=== PATIENT | male | born 1985 | race Caucasian/White ===

== ENCOUNTER 2020-04-12 18:19 | Emergency (ER) | payer SELFPAY ==
[~2020-04-12] VITALS: Ht 177.8 cm; Wt 83.6 kg
--- NOTE | 2020-04-12 19:58 | NUR ---
MIA SAPP [phone] FOR RIDE HOME AND INFO
[2020-04-12] MEDS ORDERED: propofol 1000mg/100ml bottle 100 ML IV PRN (20:03)
[2020-04-12] MEDS ORDERED: ketamine 50 mg/ml 10ml vial IV ONE (20:05)
[2020-04-12] MEDS ORDERED: propofol 10mg/ml 20ml vial IV ONE (20:30)
[2020-04-12] MEDS ORDERED: propofol 1000mg/100ml bottle 100 ML IV ONE (21:07)
--- NOTE | 2020-04-12 21:40 | NUR ---
SECOND BOTTLE OF PROPOFOL NEEDED PT WAS WAKING UP DURING PROCEDURE
--- NOTE | 2020-04-12 22:42 | NUR ---
pt called mom for a ride home
--- NOTE | 2020-04-12 22:49 | NUR ---
talked to pt mom and let her know that pt needs to be observed for 24 hr by a responsible adult. mother is a retired rn he will be staying with mother until he recovers.
--- NOTE | 2020-04-12 22:52 | NUR ---
pt was given 500mh of propofol and 100mg of ketamine during moderate sedation
[2020-04-12 23:31] VITALS: BP 154/107
== END 2020-04-12 23:35 | disposition home or self-care (01) ==
LOC: ER 18:19
DX: S42.252A Displaced fracture of greater tuberosity of left humerus, initial encounter for closed fracture (principal); S43.005A Unspecified dislocation of left shoulder joint, initial encounter; K21.9 Gastro-esophageal reflux disease without esophagitis; Z56.0 Unemployment, unspecified; W51.XXXA Accidental striking against or bumped into by another person, initial encounter; Y93.89 Activity, other specified; Y92.89 Other specified places as the place of occurrence of the external cause; Y99.8 Other external cause status
CPT/HCPCS: 23650; 73020; 73030; 99152; 99153; 99285; J2704; 24505

== ENCOUNTER 2021-07-08 16:56 | Inpatient (IN) | payer OTHER ==
[~2021-07-08] VITALS: Ht 177.8 cm; Wt 81.6 kg
[2021-07-08 17:31] LABS: BASOPHILS % (AUTO) 0.2 % (0-1); EOSINOPHILS # (AUTO) 0.1 X10'3 (0-0.9); EOSINOPHILS % (AUTO) 0.8 % (0-6); HEMATOCRIT 38.1 % (42.0-52.0); HEMOGLOBIN 13.3 g/dl (14.0-17.9); LYMPHOCYTES # (AUTO) 0.7 X10'3 (1.1-4.8); LYMPHOCYTES % (AUTO) 9.4 % (21-51); MEAN CORPUSCULAR HGB CONC 34.8 g/dL (33.0-36.5); MEAN CORPUSCULAR VOLUME 100.6 FL (78-98); MEAN PLATELET VOLUME 9.4 FL (7.4-10.4); MONOCYTES # (AUTO) 1.1 X10'3 (0-0.9); MONOCYTES % (AUTO) 13.9 % (2-12); NEUTROPHILS # (AUTO) 5.7 X10'3 (1.8-7.7); NEUTROPHILS % (AUTO) 75.7 % (42-75); PLATELET COUNT 138 X10'3 (140-440); RED BLOOD COUNT 3.79 X10'6 (4.70-6.10); RED CELL DISTRIBUTION WIDTH 16.4 % (11.5-14.5); WHITE BLOOD COUNT 7.6 X10'3 (4.5-11.0)
[2021-07-08 17:46] LABS: ALANINE AMINOTRANSFERASE 83 U/L (12-78); ALBUMIN 3.1 G/DL (3.4-5.0); ALKALINE PHOSPHATASE 153 IU/L (46-116); ANION GAP 10 (8-16); BILIRUBIN,TOTAL 16.5 MG/DL (0.1-1.0); BLOOD UREA NITROGEN 3 MG/DL (7-18); BUN/CREATININE RATIO 5.2 (5.4-32.0); CALCIUM 7.8 MG/DL (8.5-10.1); CHLORIDE 98 MMOL/L (99-107); CREATININE 0.58 MG/DL (0.60-1.10); LIPASE 289 U/L (73-393); SODIUM 137 MMOL/L (135-145); TOTAL CARBON DIOXIDE 28.7 MMOL/L (24-32); eGFR > 90 ML/MIN
[2021-07-08 18:08] LABS: POTASSIUM 3.1 MMOL/L (3.5-5.1)
[2021-07-08 18:09] LABS: CLARITY,URINE CLOUDY (Clear); COLOR,URINE AMBER (Yellow); GLUCOSE, URINE 100 mg/dl (Neg); KETONES,URINE TRACE mg/dl (Neg); LEUKOCYTE ESTERASE ,URINE NEGATIVE (Neg); NITRITES, URINE NEGATIVE (Neg); OCCULT BLOOD,URINE NEGATIVE (Neg); PH,URINE 5.5 (4.8-8.0); PROTEIN,URINE 30 mg/dl (Neg)
[2021-07-08 18:13] LABS: UA COLLECTION TYPE CLN CATCH MIDSTREAM
[2021-07-08 18:18] LABS: BACTERIA,URINE 1+ /HPF (Neg); RBC,URINE 0-2 /HPF (0-2); SQUAMOUS EPITHELIAL CELL,UR FEW /LPF (FEW); WBC,URINE 0-4 /HPF (0-4)
[2021-07-08 18:19] LABS: TRANSITIONAL EPI CELLS,URINE FEW /HPF
[2021-07-08 18:22] LABS: ALBUMIN/GLOBULIN RATIO 0.8 (1.1-1.5); GLUCOSE 120 MG/DL (70-104); TOTAL PROTEIN 6.9 G/DL (6.4-8.2)
--- NOTE | 2021-07-08 18:57 | NUR ---
PT ABD DISTENDED, PT C/O OF ABD PAIN 08/31. NO BM FOR 4 DAYS. PT STATES HE HAD A SEIZURE IN JANUARY 2021 WHEN HE ATTEMPTED TO QUIT DRINKING. PT HERE FROM [place] FOR REHAB.
[2021-07-08 19:03] LABS: ASPARTATE AMINO TRANSFERASE 230 U/L (10-37)
[2021-07-08] MEDS ORDERED: iohexol 300mg/ml 100ml inj. ONE (19:19)
[2021-07-08 19:25] LABS: PARTIAL THROMBOPLASTIN TIME 36 SECONDS (22-32)
--- NOTE | 2021-07-08 19:34 | NUR ---
PT MOTHER CALLED AND REPORTED PT WAS VOMITING BLOOD THIS AM. STATES HE HAS HAD MENTAL CHANGES AFTER SEIZURE IN JANUARY. REPORTS FORGETFULNESS
[2021-07-08] MEDS ORDERED: magnesium 2GM in 50ml NS 50 ML IV PRN (21:00)
[2021-07-08] MEDS ORDERED: potassium Cl 20 mEq SR tablet PO PRN (21:00)
[2021-07-08] MEDS ORDERED: bisacodyl 10mg suppository rectal RC PRN (21:00)
[2021-07-08] MEDS ORDERED: diphenhydrAMINE 50 mg/ml inj IV PRN (21:00)
[2021-07-08] MEDS ORDERED: mag hydrox/Alum hydrox/simeth 30ml oral suspension PO PRN (21:00)
[2021-07-08] MEDS ORDERED: magnesium Cl slow-release 64mg tablet PO PRN (21:00)
[2021-07-08] MEDS ORDERED: acetaminophen 325mg tablet PO PRN ×2 (21:00)
[2021-07-08] MEDS ORDERED: magnesium 4gm in 100ml NS 100 ML IV PRN (21:00)
[2021-07-08] MEDS ORDERED: potassium Cl 40MEQ/1/2NS 520ml 520 ML IV PRN ×2 (21:00)
[2021-07-08] MEDS ORDERED: acetaminophen 650mg rectal suppository RC PRN (21:00)
[2021-07-08] MEDS ORDERED: HYDROcodone/acetaminophen 5mg/325mg tablet PO PRN (21:00)
[2021-07-08] MEDS ORDERED: morphine 2 MG/ML inj. syringe IV PRN (21:00)
[2021-07-08] MEDS ORDERED: LORazepam 2 mg/ml vial IV PRN (21:20)
[2021-07-08] MEDS ORDERED: dextrose 50%-water 50ml dispensing syringe IV PRN (21:20)
[2021-07-08] MEDS ORDERED: cyclobenzaprine 10mg tablet PO PRN (21:20)
[2021-07-08] MEDS ORDERED: loperamide 2mg capsule PO PRN (21:20)
[2021-07-08] MEDS ORDERED: haloperidol lactate 5mg/ml inj IM PRN (21:20)
[2021-07-08 21:33] LABS: HEMOGLOBIN A1C 4.9 % (4.5-6.2)
[2021-07-08] MEDS ORDERED: thiamine inj. 100 MG in normal saline 100ml IV soln 99 ML IV ONE (21:40)
[2021-07-08 21:49] LABS: C-REACTIVE PROTEIN 4.67 MG/DL (0.0-0.5); CREATINE KINASE 358 U/L (39-308); ETHANOL 0.155 GM/DL (0.0-0.010)
[2021-07-08 21:51] LABS: LACTATE DEHYDROGENASE 385 U/L (85-227); PHOSPHORUS 3.2 MG/DL (2.3-4.5)
[2021-07-08 21:54] LABS: URINE AMPHETAMINE SCREEN NEGATIVE (Neg); URINE BARBITUATE SCREEN NEGATIVE (Neg); URINE BENZODIAZEPINES SCREEN NEGATIVE (Neg); URINE CANNABINOID SCREEN POSITIVE (Neg); URINE COCAINE SCREEN NEGATIVE (Neg); URINE METHADONE SCREEN NEGATIVE (Neg); URINE OPIATE SCREEN NEGATIVE (Neg); URINE PHENCYCLIDINE SCREEN NEGATIVE (Neg)
[2021-07-08] MEDS ORDERED: predniSONE 20 mg tablet PO ONE (22:00)
[2021-07-08] MEDS ORDERED: NO HOME MEDS (22:31)
[2021-07-08] MEDS: dextrose 5%-1/2 normal saline 1,000 ML IV SCH (23:09)
[2021-07-08 23:13] LABS: OCCULT BLOOD STOOL NEGATIVE (Neg)
[2021-07-08] MEDS: LORazepam 2 mg/ml vial IV PRN (23:26)
--- NOTE | 2021-07-09 02:00 | NUR ---
PT RESTING CALMLY. RR EVEN, NON-LABORED.
[2021-07-09 02:42] LABS: BASOPHILS % (AUTO) 0.4 % (0-1); EOSINOPHILS % (AUTO) 0.8 % (0-6); HEMATOCRIT 33.9 % (42.0-52.0); LYMPHOCYTES # (AUTO) 0.4 X10'3 (1.1-4.8); LYMPHOCYTES % (AUTO) 7.3 % (21-51); MEAN CORPUSCULAR HGB CONC 35.5 g/dL (33.0-36.5); MEAN CORPUSCULAR VOLUME 98.6 FL (78-98); MEAN PLATELET VOLUME 9.5 FL (7.4-10.4); MONOCYTES # (AUTO) 0.7 X10'3 (0-0.9); MONOCYTES % (AUTO) 13.8 % (2-12); NEUTROPHILS # (AUTO) 4.1 X10'3 (1.8-7.7); NEUTROPHILS % (AUTO) 77.7 % (42-75); PLATELET COUNT 107 X10'3 (140-440); RED BLOOD COUNT 3.43 X10'6 (4.70-6.10); RED CELL DISTRIBUTION WIDTH 16.8 % (11.5-14.5); WHITE BLOOD COUNT 5.3 X10'3 (4.5-11.0)
[2021-07-09 02:52] LABS: SODIUM 135 MMOL/L (135-145)
[2021-07-09 02:53] LABS: ALANINE AMINOTRANSFERASE 58 U/L (12-78); ALBUMIN 2.6 G/DL (3.4-5.0); ALKALINE PHOSPHATASE 138 IU/L (46-116); ANION GAP 11 (8-16); BILIRUBIN,TOTAL 15.2 MG/DL (0.1-1.0); BLOOD UREA NITROGEN 3 MG/DL (7-18); BUN/CREATININE RATIO 6.8 (5.4-32.0); CALCIUM 7.3 MG/DL (8.5-10.1); CHLORIDE 98 MMOL/L (99-107); CREATININE 0.44 MG/DL (0.60-1.10); HDL CHOLESTEROL 10 MG/DL (35-60); LDL CHOLESTEROL 90 MG/DL (50-100); MAGNESIUM 1.6 MG/DL (1.5-2.4); TOTAL CARBON DIOXIDE 26.1 MMOL/L (24-32); eGFR > 90 ML/MIN
[2021-07-09 03:03] LABS: ASPARTATE AMINO TRANSFERASE 191 U/L (10-37); GLUCOSE 121 MG/DL (70-104); TOTAL PROTEIN 6.2 G/DL (6.4-8.2); TRIGLYCERIDES 232 MG/DL (20-135)
[2021-07-09 03:06] LABS: ALBUMIN/GLOBULIN RATIO 0.7 (1.1-1.5); POTASSIUM 2.8 MMOL/L (3.5-5.1)
[2021-07-09] MEDS: potassium Cl 20 mEq SR tablet PO PRN ×3 (03:21→14:06)
[2021-07-09 03:29] LABS: CHOL/HDL RATIO 12.2 (0.00-4.99); CHOLESTEROL 122 MG/DL (0-200)
--- NOTE | 2021-07-09 05:10 | NUR ---
PT ASSISTED UP TO BEDSIDE URINAL. HE REPORTS FEELING STEADY ON HIS FEET, DENIES ANY FEELING OF ANXIETY OR SHAKING. WILL CONTINUE TO MONITOR. PT. ASSISTED BACK TO BED.
[2021-07-09] MEDS: LORazepam 2 mg/ml vial IV PRN ×2 (07:34→12:16)
[2021-07-09] MEDS: pantoprazole 40mg Tablet.DR PO SCH (07:34)
[2021-07-09] MEDS: docusate sod 100mg capsule PO SCH ×2 (08:00→20:00)
[2021-07-09] MEDS: K and/or MAG REPLACEMENT MC SCH ×2 (08:00→20:00)
[2021-07-09] MEDS ORDERED: folic acid inj. 2 MG, thiamine inj. 100 MG, MVI, adult No.4 with vit. K 10 ML in dextro... IV SCH ×4 (08:00)
[2021-07-09] MEDS ORDERED: thiamine inj. 100 MG in normal saline 100ml IV soln 99 ML IV SCH (08:00)
[2021-07-09 08:08] VITALS: BP 129/91
[2021-07-09 11:00] VITALS: BP 135/88
[2021-07-09] MEDS: nicotine 21mg patch - 24 hr TD SCH (12:11)
[2021-07-09] MEDS: dextrose 5%-1/2 normal saline 1,000 ML IV SCH ×2 (12:11→17:44)
[2021-07-09] MEDS: magnesium hydroxide 30ml (MOM) UD suspension PO PRN (12:16)
--- NOTE | 2021-07-09 13:59 | NUR ---
PAGER ID: [phone] MESSAGE: Emery Alicea 345A Pt. c/o untreated genital warts. 3 Papules on anterior penis. Kiesha [id number]
[2021-07-09] MEDS: folic acid 1mg/0.2ml inj IV SCH (14:06)
--- NOTE | 2021-07-09 14:29 | NUR ---
Malnutrition Consult: Pt admitted w/ abdominal pain and jaundice w/ a hx of alcohol abuse. Pt unsure of wt loss, though current wt is consistent w/ wt from 3 months ago. Pt has had decreased appetite for the last couple of weeks d/t abd pain, was able to eat about 50% of dinner last night on regular diet. No edema present, no signs of muscle or fat wasting noted. At this time Pt does not meet minimum 2 criteria for malnutrition. Will continue to monitor. Addendum: 07/09/21 at [address] Amended: Links added.
--- NOTE | 2021-07-09 14:33 | NUR ---
Hospitalist returned phone call. States we wont treat pt's presumed STD in hospital r/t meds are not available. Recommends pt. f/u with his PCP follow up.
--- NOTE | 2021-07-09 17:16 | NUR ---
PAGER ID: [phone] MESSAGE: Emery Alicea 345A passive regarding healthcare. Gave permission for mother to know healthcare. She is asking for you to discuss CT and US results with her. [phone] mom ANAID SAPP. Kiesha [phone]
[2021-07-09] MEDS: morphine 2 MG/ML inj. syringe IV PRN (17:50)
--- NOTE | 2021-07-09 18:49 | NUR ---
Gave report to Lita SMITH.
--- NOTE | 2021-07-09 19:14 | NUR ---
Patient in room [facility]. I have received report from Kiesha SMITH and had the opportunity to ask questions and assume patient care.
[2021-07-09 20:00] VITALS: BP 153/90
[2021-07-09] MEDS: ondansetron 4mg rapidly disintigrating tab PO PRN (22:53)
[2021-07-09 23:58] VITALS: BP 151/90
[2021-07-10] MEDS: dextrose 5%-1/2 normal saline 1,000 ML IV SCH ×2 (02:52→12:44)
--- NOTE | 2021-07-10 06:50 | NUR ---
Problems reprioritized. Patient report given, questions answered & plan of care reviewed with Izabella SMITH.
[2021-07-10 07:00] VITALS: BP 116/77
[2021-07-10 07:07] LABS: BASOPHILS % (AUTO) 0.7 % (0-1); EOSINOPHILS # (AUTO) 0.1 X10'3 (0-0.9); EOSINOPHILS % (AUTO) 1.3 % (0-6); HEMATOCRIT 35.7 % (42.0-52.0); HEMOGLOBIN 12.4 g/dl (14.0-17.9); LYMPHOCYTES # (AUTO) 0.5 X10'3 (1.1-4.8); MEAN CORPUSCULAR HEMOGLOBIN 35.4 PG (27.0-31.0); MEAN CORPUSCULAR HGB CONC 34.7 g/dL (33.0-36.5); MEAN CORPUSCULAR VOLUME 101.9 FL (78-98); MEAN PLATELET VOLUME 10.3 FL (7.4-10.4); MONOCYTES % (AUTO) 15.4 % (2-12); NEUTROPHILS % (AUTO) 75.6 % (42-75); PLATELET COUNT 118 X10'3 (140-440); RED BLOOD COUNT 3.51 X10'6 (4.70-6.10); RED CELL DISTRIBUTION WIDTH 16.6 % (11.5-14.5); WHITE BLOOD COUNT 6.6 X10'3 (4.5-11.0)
--- NOTE | 2021-07-10 07:12 | NUR ---
Patient in room [facility]. I have received report from Clarissa SMITH and had the opportunity to ask questions and assume patient care.
[2021-07-10 07:19] LABS: ALANINE AMINOTRANSFERASE 63 U/L (12-78); ALBUMIN 2.6 G/DL (3.4-5.0); ALKALINE PHOSPHATASE 142 IU/L (46-116); ANION GAP 9 (8-16); BILIRUBIN,TOTAL 17.3 MG/DL (0.1-1.0); BLOOD UREA NITROGEN 3 MG/DL (7-18); CALCIUM 7.5 MG/DL (8.5-10.1); CHLORIDE 99 MMOL/L (99-107); MAGNESIUM 1.9 MG/DL (1.5-2.4); SODIUM 133 MMOL/L (135-145); TOTAL CARBON DIOXIDE 24.9 MMOL/L (24-32)
[2021-07-10 07:45] LABS: ALBUMIN/GLOBULIN RATIO 0.7 (1.1-1.5); TOTAL PROTEIN 6.1 G/DL (6.4-8.2)
[2021-07-10 07:46] LABS: ASPARTATE AMINO TRANSFERASE 158 U/L (10-37); CREATININE 0.43 MG/DL (0.60-1.10); GLUCOSE 102 MG/DL (70-104); POTASSIUM 3.6 MMOL/L (3.5-5.1); eGFR > 90 ML/MIN
[2021-07-10] MEDS: docusate sod 100mg capsule PO SCH ×2 (07:59→19:53)
[2021-07-10] MEDS: multivitamins, therapeutics tablet PO SCH (07:59)
[2021-07-10] MEDS: pantoprazole 40mg Tablet.DR PO SCH (07:59)
[2021-07-10] MEDS: ondansetron/PF 4mg/2ml inj IV PRN ×2 (08:00→16:19)
[2021-07-10] MEDS: K and/or MAG REPLACEMENT MC SCH ×2 (08:00→20:00)
[2021-07-10] MEDS: nicotine 21mg patch - 24 hr TD SCH (08:00)
[2021-07-10] MEDS: folic acid 1mg/0.2ml inj IV SCH (08:01)
[2021-07-10 10:00] LABS: ANISOCYTOSIS 1+; LARGE PLATELETS FEW; PLATELET ESTIMATE DECREASED
[2021-07-10 10:05] LABS: TOTAL CELLS COUNTED 100
[2021-07-10] MEDS: LORazepam 2 mg/ml vial IV PRN ×2 (10:46→19:53)
[2021-07-10] MEDS: thiamine inj. 100 MG in normal saline 100ml IV soln 100 ML IV SCH (10:46)
[2021-07-10 11:01] LABS: AFP,SERUM, TUMOR MARKER 2.8 ng/mL (0.0-8.3)
[2021-07-10 12:00] VITALS: BP 127/81
[2021-07-10] MEDS: morphine 2 MG/ML inj. syringe IV PRN (16:20)
--- NOTE | 2021-07-10 18:56 | NUR ---
Problems reprioritized. Patient report given, questions answered & plan of care reviewed with Sharif SMITH.
--- NOTE | 2021-07-10 19:04 | NUR ---
Patient in room [facility]. I have received report from Izabella SMITH and had the opportunity to ask questions and assume patient care.
[2021-07-10 19:19] VITALS: BP 127/71
[2021-07-10 23:45] VITALS: BP 114/69
[2021-07-11] MEDS: dextrose 5%-1/2 normal saline 1,000 ML IV SCH ×3 (01:14→17:37)
[2021-07-11] MEDS: morphine 2 MG/ML inj. syringe IV PRN ×2 (01:15→16:09)
[2021-07-11] MEDS: ondansetron/PF 4mg/2ml inj IV PRN ×3 (01:19→13:50)
[2021-07-11] MEDS: LORazepam 2 mg/ml vial IV PRN ×5 (03:02→23:20)
--- NOTE | 2021-07-11 07:16 | NUR ---
Problems reprioritized. Patient report given, questions answered & plan of care reviewed with Renetta SMITH.
[2021-07-11] MEDS: multivitamins, therapeutics tablet PO SCH (07:23)
[2021-07-11] MEDS: docusate sod 100mg capsule PO SCH ×2 (07:23→19:39)
[2021-07-11] MEDS: pantoprazole 40mg Tablet.DR PO SCH (07:23)
[2021-07-11] MEDS: folic acid 1mg/0.2ml inj IV SCH (07:24)
[2021-07-11] MEDS: thiamine inj. 100 MG in normal saline 100ml IV soln 100 ML IV SCH (07:25)
[2021-07-11 07:57] LABS: BASOPHILS # (AUTO) 0.1 X10'3 (0-0.2); BASOPHILS % (AUTO) 0.9 % (0-1); EOSINOPHILS # (AUTO) 0.1 X10'3 (0-0.9); EOSINOPHILS % (AUTO) 1.4 % (0-6); HEMOGLOBIN 12.6 g/dl (14.0-17.9); LYMPHOCYTES # (AUTO) 0.7 X10'3 (1.1-4.8); MEAN CORPUSCULAR HEMOGLOBIN 35.4 PG (27.0-31.0); MEAN CORPUSCULAR HGB CONC 35.1 g/dL (33.0-36.5); MEAN CORPUSCULAR VOLUME 100.9 FL (78-98); MEAN PLATELET VOLUME 10.1 FL (7.4-10.4); MONOCYTES # (AUTO) 1.1 X10'3 (0-0.9); MONOCYTES % (AUTO) 15.9 % (2-12); NEUTROPHILS # (AUTO) 4.9 X10'3 (1.8-7.7); NEUTROPHILS % (AUTO) 71.8 % (42-75); PLATELET COUNT 121 X10'3 (140-440); RED BLOOD COUNT 3.56 X10'6 (4.70-6.10); RED CELL DISTRIBUTION WIDTH 17.2 % (11.5-14.5); WHITE BLOOD COUNT 6.8 X10'3 (4.5-11.0)
[2021-07-11 08:00] VITALS: BP 114/74
[2021-07-11] MEDS: K and/or MAG REPLACEMENT MC SCH ×2 (08:00→20:00)
[2021-07-11 08:11] LABS: ALANINE AMINOTRANSFERASE 61 U/L (12-78); ALBUMIN 2.5 G/DL (3.4-5.0); ALKALINE PHOSPHATASE 135 IU/L (46-116); ANION GAP 9 (8-16); BILIRUBIN,TOTAL 21.6 MG/DL (0.1-1.0); BLOOD UREA NITROGEN 3 MG/DL (7-18); CALCIUM 7.6 MG/DL (8.5-10.1); CHLORIDE 97 MMOL/L (99-107); MAGNESIUM 1.9 MG/DL (1.5-2.4); SODIUM 133 MMOL/L (135-145)
[2021-07-11] MEDS: nicotine 21mg patch - 24 hr TD SCH (08:15)
[2021-07-11 08:18] LABS: ALBUMIN/GLOBULIN RATIO 0.7 (1.1-1.5); ASPARTATE AMINO TRANSFERASE 146 U/L (10-37); BUN/CREATININE RATIO 5.4 (5.4-32.0); CREATININE 0.56 MG/DL (0.60-1.10); GLUCOSE 94 MG/DL (70-104); POTASSIUM 3.3 MMOL/L (3.5-5.1); TOTAL PROTEIN 5.9 G/DL (6.4-8.2); eGFR > 90 ML/MIN
[2021-07-11 09:21] LABS: ANISOCYTOSIS 1+; PLATELET ESTIMATE NORMAL; TOTAL CELLS COUNTED 100
[2021-07-11 09:22] LABS: TARGET CELLS 1+
[2021-07-11 12:00] VITALS: BP 124/76
[2021-07-11] MEDS ORDERED: proCHLORperazine 10 MG/2 ml inj IV PRN (16:25)
[2021-07-11 18:35] VITALS: BP 123/83
--- NOTE | 2021-07-11 18:39 | NUR ---
Patient in room [facility]. I have received report from Renetta SMITH and had the opportunity to ask questions and assume patient care.
--- NOTE | 2021-07-11 19:29 | NUR ---
Patient given back to Sharif SMITH. All questions answered. No current needs from patient. Pt alert, oriented and appears stable at this time.
[2021-07-11 23:40] VITALS: BP 120/74
[2021-07-12] MEDS: dextrose 5%-1/2 normal saline 1,000 ML IV SCH ×2 (03:03→14:13)
[2021-07-12] MEDS: morphine 2 MG/ML inj. syringe IV PRN ×2 (03:04→14:11)
[2021-07-12] MEDS: LORazepam 2 mg/ml vial IV PRN (04:48)
[2021-07-12 06:28] LABS: BASOPHILS % (AUTO) 0.2 % (0-1); EOSINOPHILS # (AUTO) 0.1 X10'3 (0-0.9); EOSINOPHILS % (AUTO) 1.6 % (0-6); HEMATOCRIT 34.5 % (42.0-52.0); HEMOGLOBIN 12.2 g/dl (14.0-17.9); LYMPHOCYTES # (AUTO) 0.5 X10'3 (1.1-4.8); LYMPHOCYTES % (AUTO) 7.7 % (21-51); MEAN CORPUSCULAR HEMOGLOBIN 35.7 PG (27.0-31.0); MEAN CORPUSCULAR HGB CONC 35.4 g/dL (33.0-36.5); MEAN CORPUSCULAR VOLUME 100.7 FL (78-98); MEAN PLATELET VOLUME 9.3 FL (7.4-10.4); MONOCYTES % (AUTO) 14.7 % (2-12); NEUTROPHILS # (AUTO) 5.2 X10'3 (1.8-7.7); NEUTROPHILS % (AUTO) 75.8 % (42-75); PLATELET COUNT 138 X10'3 (140-440); RED BLOOD COUNT 3.42 X10'6 (4.70-6.10); RED CELL DISTRIBUTION WIDTH 17.1 % (11.5-14.5); WHITE BLOOD COUNT 6.8 X10'3 (4.5-11.0)
[2021-07-12 06:39] LABS: ALANINE AMINOTRANSFERASE 55 U/L (12-78); ALBUMIN 2.3 G/DL (3.4-5.0); ALKALINE PHOSPHATASE 128 IU/L (46-116); ANION GAP 9 (8-16); BILIRUBIN,TOTAL 23.7 MG/DL (0.1-1.0); BLOOD UREA NITROGEN 4 MG/DL (7-18); CALCIUM 7.4 MG/DL (8.5-10.1); CHLORIDE 97 MMOL/L (99-107); MAGNESIUM 1.8 MG/DL (1.5-2.4); SODIUM 131 MMOL/L (135-145); TOTAL CARBON DIOXIDE 25.5 MMOL/L (24-32)
[2021-07-12 06:55] LABS: ALBUMIN/GLOBULIN RATIO 0.7 (1.1-1.5); ASPARTATE AMINO TRANSFERASE 129 U/L (10-37); BUN/CREATININE RATIO 6.3 (5.4-32.0); CREATININE 0.64 MG/DL (0.60-1.10); GLUCOSE 98 MG/DL (70-104); TOTAL PROTEIN 5.4 G/DL (6.4-8.2); eGFR > 90 ML/MIN
[2021-07-12 06:57] LABS: POTASSIUM 3.3 MMOL/L (3.5-5.1)
--- NOTE | 2021-07-12 06:57 | NUR ---
Problems reprioritized. Patient report given, questions answered & plan of care reviewed with Kiesha SMITH.
[2021-07-12 07:00] VITALS: BP 90/55
[2021-07-12] MEDS: K and/or MAG REPLACEMENT MC SCH ×2 (08:00→20:00)
[2021-07-12] MEDS: docusate sod 100mg capsule PO SCH ×2 (09:00→19:26)
[2021-07-12] MEDS: pantoprazole 40mg Tablet.DR PO SCH (09:00)
[2021-07-12] MEDS: multivitamins, therapeutics tablet PO SCH (09:01)
[2021-07-12] MEDS: nicotine 21mg patch - 24 hr TD SCH (09:02)
[2021-07-12] MEDS: folic acid 1mg/0.2ml inj IV SCH (09:02)
[2021-07-12] MEDS: magnesium hydroxide 30ml (MOM) UD suspension PO PRN (09:02)
[2021-07-12 11:00] VITALS: BP 111/76
[2021-07-12] MEDS ORDERED: potassium Cl 40MEQ/1/2NS 520ml 520 ML IV PRN (12:30)
[2021-07-12] MEDS ORDERED: potassium Cl 20 mEq SR tablet PO PRN (12:30)
[2021-07-12] MEDS ORDERED: iohexol 300mg/ml 100ml inj. ONE (12:35)
[2021-07-12] MEDS: thiamine 100mg tablet PO SCH (14:11)
[2021-07-12] MEDS: potassium Cl 20 mEq SR tablet PO PRN ×2 (14:11→19:26)
[2021-07-12] MEDS: predniSONE 20 mg tablet PO SCH (14:44)
[2021-07-12 15:10] LABS: PARTIAL THROMBOPLASTIN TIME 48 SECONDS (22-32)
--- NOTE | 2021-07-12 15:59 | NUR ---
PAGER ID: [phone] MESSAGE: Emery Alicea 345A FYI MRI down until Wednesday. Kiesha [id number]
--- NOTE | 2021-07-12 18:06 | NUR ---
Gave report to Sharif SMITH.
--- NOTE | 2021-07-12 18:37 | NUR ---
Patient in room [facility]. I have received report from Kiesha SMITH and had the opportunity to ask questions and assume patient care.
[2021-07-12 19:23] VITALS: BP 116/79
[2021-07-12] MEDS: temazepam 15mg capsule PO PRN (21:13)
[2021-07-13 00:03] VITALS: BP 115/76
[2021-07-13] MEDS: dextrose 5%-1/2 normal saline 1,000 ML IV SCH ×3 (00:57→21:00)
[2021-07-13] MEDS: LORazepam 2 mg/ml vial IV PRN ×2 (00:57→19:06)
--- NOTE | 2021-07-13 06:05 | NUR ---
Patient in room [facility]. I have received report from Sharif SMITH and had the opportunity to ask questions and assume patient care.
--- NOTE | 2021-07-13 06:26 | NUR ---
Problems reprioritized. Patient report given, questions answered & plan of care reviewed with Izabella SMITH.
[2021-07-13 06:34] LABS: PARTIAL THROMBOPLASTIN TIME 47 SECONDS (22-32)
[2021-07-13 06:57] LABS: BASOPHILS % (AUTO) 0.3 % (0-1); EOSINOPHILS % (AUTO) 0.1 % (0-6); HEMATOCRIT 38.3 % (42.0-52.0); HEMOGLOBIN 13.3 g/dl (14.0-17.9); LYMPHOCYTES # (AUTO) 0.3 X10'3 (1.1-4.8); LYMPHOCYTES % (AUTO) 4.2 % (21-51); MEAN CORPUSCULAR HGB CONC 34.7 g/dL (33.0-36.5); MEAN CORPUSCULAR VOLUME 103.6 FL (78-98); MEAN PLATELET VOLUME 10.3 FL (7.4-10.4); MONOCYTES # (AUTO) 0.8 X10'3 (0-0.9); MONOCYTES % (AUTO) 10.4 % (2-12); NEUTROPHILS # (AUTO) 6.2 X10'3 (1.8-7.7); PLATELET COUNT 143 X10'3 (140-440); RED BLOOD COUNT 3.69 X10'6 (4.70-6.10); RED CELL DISTRIBUTION WIDTH 17.6 % (11.5-14.5); WHITE BLOOD COUNT 7.3 X10'3 (4.5-11.0)
[2021-07-13 07:02] LABS: ALANINE AMINOTRANSFERASE 62 U/L (12-78); ALBUMIN 2.4 G/DL (3.4-5.0); ANION GAP 9 (8-16); BLOOD UREA NITROGEN 4 MG/DL (7-18); CALCIUM 7.9 MG/DL (8.5-10.1); CHLORIDE 100 MMOL/L (99-107); MAGNESIUM 2.3 MG/DL (1.5-2.4); SODIUM 134 MMOL/L (135-145); TOTAL CARBON DIOXIDE 25.3 MMOL/L (24-32)
[2021-07-13 07:17] VITALS: BP_SYST 119; BP_SYST 148; BP_DIAS 70; BP_DIAS 73
[2021-07-13 07:22] LABS: ALKALINE PHOSPHATASE 143 IU/L (46-116)
[2021-07-13 07:34] LABS: ASPARTATE AMINO TRANSFERASE 127 U/L (10-37); BILIRUBIN,TOTAL 26.5 MG/DL (0.1-1.0); BUN/CREATININE RATIO 7.5 (5.4-32.0); CREATININE 0.53 MG/DL (0.60-1.10); GLUCOSE 126 MG/DL (70-104); POTASSIUM 4.2 MMOL/L (3.5-5.1); eGFR > 90 ML/MIN
[2021-07-13 07:44] LABS: ALBUMIN/GLOBULIN RATIO 0.6 (1.1-1.5); TOTAL PROTEIN 6.2 G/DL (6.4-8.2)
[2021-07-13] MEDS: K and/or MAG REPLACEMENT MC SCH ×2 (08:00→20:00)
[2021-07-13] MEDS: multivitamins, therapeutics tablet PO SCH (08:03)
[2021-07-13] MEDS: pantoprazole 40mg Tablet.DR PO SCH (08:04)
[2021-07-13] MEDS: docusate sod 100mg capsule PO SCH ×2 (08:04→21:03)
[2021-07-13] MEDS: folic acid 1mg tablet PO SCH (08:04)
[2021-07-13] MEDS: predniSONE 20 mg tablet PO SCH (08:04)
[2021-07-13] MEDS: thiamine 100mg tablet PO SCH (08:04)
[2021-07-13] MEDS: nicotine 21mg patch - 24 hr TD SCH (08:05)
--- NOTE | 2021-07-13 09:41 | NUR ---
PAGER ID: [phone] MESSAGE: Emery Alicea 345A- Pt schedule for an MRI test but MRI machine is broken and will not be available until Wednesday. Please advise. Thank you, Izabella Barnes
[2021-07-13] MEDS ORDERED: phytonadione inj. 5 MG in normal saline 100ml IV soln 100 ML IV ONE (09:55)
[2021-07-13 11:00] VITALS: BP 97/58
--- NOTE | 2021-07-13 11:14 | NUR ---
Initial: Pt admitted w/ abdominal pain and jaundice w/ a hx of alcohol abuse. Pt's PO intake has declined since admission, now avg 25-50% of meals not meeting needs. Pt has intermittent abd pain w/ nausea and small episodes of emesis 07/11- likely d/t withdrawals. Pt states ONS might be easier to consume for him. Discussed w/ RN pt NPO today for procedure, though MRI is broken so pt will be back on regular diet. LBM 07/03. Will continue to monitor.. Recs: 1. Continue Regular diet as tolerated 2. Ensure Enlive TID to provide 1050kcals and 60g protein if consumed 100% 3. Bowel care per rx 4. Weekly wts Addendum: 07/13/21 at [address] Amended: Links added.
--- NOTE | 2021-07-13 18:05 | NUR ---
Problems reprioritized. Patient report given, questions answered & plan of care reviewed with Marilyn SMITH.
--- NOTE | 2021-07-13 18:05 | NUR ---
Patient in room [facility]. I have received report from SARAH Parekh and had the opportunity to ask questions and assume patient care.
[2021-07-13 19:00] VITALS: BP_SYST 114; BP_SYST 136; BP_DIAS 70; BP_DIAS 74
[2021-07-13] MEDS: temazepam 15mg capsule PO PRN (23:46)
[2021-07-14] VITALS: BP_SYST 106; BP_SYST 148; BP_DIAS 73; BP_DIAS 80
[2021-07-14] MEDS: dextrose 5%-1/2 normal saline 1,000 ML IV SCH ×2 (02:38→17:04)
[2021-07-14] MEDS: LORazepam 2 mg/ml vial IV PRN ×2 (02:41→11:19)
[2021-07-14 05:57] LABS: BASOPHILS % (AUTO) 0.4 % (0-1); EOSINOPHILS # (AUTO) 0.1 X10'3 (0-0.9); EOSINOPHILS % (AUTO) 0.6 % (0-6); HEMATOCRIT 36.7 % (42.0-52.0); HEMOGLOBIN 12.7 g/dl (14.0-17.9); LYMPHOCYTES # (AUTO) 0.8 X10'3 (1.1-4.8); LYMPHOCYTES % (AUTO) 8.6 % (21-51); MEAN CORPUSCULAR HEMOGLOBIN 35.9 PG (27.0-31.0); MEAN CORPUSCULAR HGB CONC 34.7 g/dL (33.0-36.5); MEAN CORPUSCULAR VOLUME 103.6 FL (78-98); MEAN PLATELET VOLUME 9.6 FL (7.4-10.4); MONOCYTES # (AUTO) 1.3 X10'3 (0-0.9); MONOCYTES % (AUTO) 13.9 % (2-12); NEUTROPHILS # (AUTO) 7.3 X10'3 (1.8-7.7); NEUTROPHILS % (AUTO) 76.5 % (42-75); PLATELET COUNT 168 X10'3 (140-440); RED BLOOD COUNT 3.54 X10'6 (4.70-6.10); RED CELL DISTRIBUTION WIDTH 17.6 % (11.5-14.5); WHITE BLOOD COUNT 9.6 X10'3 (4.5-11.0)
[2021-07-14 06:07] LABS: PARTIAL THROMBOPLASTIN TIME 48 SECONDS (22-32)
[2021-07-14 06:23] LABS: ALANINE AMINOTRANSFERASE 57 U/L (12-78); ALBUMIN 2.1 G/DL (3.4-5.0); ALKALINE PHOSPHATASE 149 IU/L (46-116); ANION GAP 7 (8-16); BILIRUBIN,TOTAL 21.2 MG/DL (0.1-1.0); BLOOD UREA NITROGEN 5 MG/DL (7-18); CALCIUM 7.5 MG/DL (8.5-10.1); CHLORIDE 99 MMOL/L (99-107); MAGNESIUM 2.5 MG/DL (1.5-2.4); POTASSIUM 3.7 MMOL/L (3.5-5.1); SODIUM 132 MMOL/L (135-145); TOTAL CARBON DIOXIDE 26.3 MMOL/L (24-32)
--- NOTE | 2021-07-14 06:25 | NUR ---
Patient in room [facility]. I have received report from Marilyn SMITH and had the opportunity to ask questions and assume patient care.
--- NOTE | 2021-07-14 06:27 | NUR ---
Problems reprioritized. Patient report given, questions answered & plan of care reviewed with SARAH Parekh.
[2021-07-14 06:52] LABS: ASPARTATE AMINO TRANSFERASE 119 U/L (10-37)
[2021-07-14 07:08] LABS: ALBUMIN/GLOBULIN RATIO 0.6 (1.1-1.5); BUN/CREATININE RATIO 10.6 (5.4-32.0); CREATININE 0.47 MG/DL (0.60-1.10); GLUCOSE 97 MG/DL (70-104); TOTAL PROTEIN 5.5 G/DL (6.4-8.2); eGFR > 90 ML/MIN
[2021-07-14 08:00] VITALS: BP 106/67
[2021-07-14] MEDS: K and/or MAG REPLACEMENT MC SCH ×2 (08:00→20:00)
--- NOTE | 2021-07-14 08:00 | NUR ---
pt refused accucheck. States he llanos slept last night and wants to rest. Addendum: 07/14/21 at 1216 by Izabella Merritt RN Amended: Links added.
[2021-07-14] MEDS: predniSONE 20 mg tablet PO SCH (08:13)
[2021-07-14] MEDS: docusate sod 100mg capsule PO SCH ×2 (08:13→21:25)
[2021-07-14] MEDS: nicotine 21mg patch - 24 hr TD SCH (08:13)
[2021-07-14] MEDS: thiamine 100mg tablet PO SCH (08:13)
[2021-07-14] MEDS: folic acid 1mg tablet PO SCH (08:13)
[2021-07-14] MEDS: multivitamins, therapeutics tablet PO SCH (08:13)
[2021-07-14] MEDS: pantoprazole 40mg Tablet.DR PO SCH (08:14)
[2021-07-14 11:00] VITALS: BP 115/72
[2021-07-14] MEDS: morphine 2 MG/ML inj. syringe IV PRN (14:46)
[2021-07-14] MEDS: ondansetron/PF 4mg/2ml inj IV PRN (14:46)
[2021-07-14 18:00] VITALS: BP 128/81
--- NOTE | 2021-07-14 18:20 | NUR ---
Problems reprioritized. Patient report given, questions answered & plan of care reviewed with Marilyn SMITH.
--- NOTE | 2021-07-14 18:25 | NUR ---
Patient in room [facility]. I have received report from SARAH Parekh and had the opportunity to ask questions and assume patient care.
[2021-07-14] MEDS: ondansetron 4mg rapidly disintigrating tab PO PRN (21:25)
[2021-07-15] VITALS: BP 126/80
[2021-07-15] MEDS: dextrose 5%-1/2 normal saline 1,000 ML IV SCH ×3 (01:11→22:42)
[2021-07-15] MEDS: temazepam 15mg capsule PO PRN ×2 (01:11→22:42)
[2021-07-15 06:00] VITALS: BP 113/77
--- NOTE | 2021-07-15 06:10 | NUR ---
Problems reprioritized. Patient report given, questions answered & plan of care reviewed with SARAH Parekh.
--- NOTE | 2021-07-15 06:36 | NUR ---
Patient in room [facility]. I have received report from Marilyn SMITH and had the opportunity to ask questions and assume patient care.
[2021-07-15 07:02] LABS: EOSINOPHILS # (AUTO) 0.1 X10'3 (0-0.9); MEAN CORPUSCULAR VOLUME 101.5 FL (78-98)
[2021-07-15 07:05] LABS: BASOPHILS % (AUTO) 0.3 % (0-1); EOSINOPHILS % (AUTO) 0.6 % (0-6); HEMATOCRIT 37.4 % (42.0-52.0); HEMOGLOBIN 12.9 g/dl (14.0-17.9); LYMPHOCYTES % (AUTO) 11.7 % (21-51); MEAN CORPUSCULAR HEMOGLOBIN 35.2 PG (27.0-31.0); MEAN CORPUSCULAR HGB CONC 34.6 g/dL (33.0-36.5); MEAN PLATELET VOLUME 9.3 FL (7.4-10.4); MONOCYTES # (AUTO) 1.2 X10'3 (0-0.9); MONOCYTES % (AUTO) 14.2 % (2-12); NEUTROPHILS # (AUTO) 6.4 X10'3 (1.8-7.7); NEUTROPHILS % (AUTO) 73.2 % (42-75); PLATELET COUNT 152 X10'3 (140-440); RED BLOOD COUNT 3.68 X10'6 (4.70-6.10); WHITE BLOOD COUNT 8.8 X10'3 (4.5-11.0)
[2021-07-15 07:13] LABS: ALANINE AMINOTRANSFERASE 55 U/L (12-78); ALBUMIN 2.1 G/DL (3.4-5.0); ALKALINE PHOSPHATASE 155 IU/L (46-116); ANION GAP 7 (8-16); BILIRUBIN,TOTAL 19.3 MG/DL (0.1-1.0); BLOOD UREA NITROGEN 7 MG/DL (7-18); CALCIUM 7.2 MG/DL (8.5-10.1); CHLORIDE 98 MMOL/L (99-107); MAGNESIUM 2.3 MG/DL (1.5-2.4); POTASSIUM 3.6 MMOL/L (3.5-5.1); SODIUM 131 MMOL/L (135-145); TOTAL CARBON DIOXIDE 25.8 MMOL/L (24-32)
[2021-07-15] MEDS: predniSONE 20 mg tablet PO SCH (07:25)
[2021-07-15] MEDS: multivitamins, therapeutics tablet PO SCH (07:25)
[2021-07-15] MEDS: docusate sod 100mg capsule PO SCH ×2 (07:25→20:02)
[2021-07-15] MEDS: pantoprazole 40mg Tablet.DR PO SCH (07:25)
[2021-07-15] MEDS: folic acid 1mg tablet PO SCH (07:25)
[2021-07-15] MEDS: thiamine 100mg tablet PO SCH (07:25)
[2021-07-15] MEDS: nicotine 21mg patch - 24 hr TD SCH (07:26)
[2021-07-15 07:29] LABS: PARTIAL THROMBOPLASTIN TIME 46 SECONDS (22-32)
[2021-07-15 07:31] LABS: ASPARTATE AMINO TRANSFERASE 96 U/L (10-37)
[2021-07-15 07:38] LABS: ALBUMIN/GLOBULIN RATIO 0.6 (1.1-1.5); BUN/CREATININE RATIO 13.2 (5.4-32.0); CREATININE 0.53 MG/DL (0.60-1.10); GLUCOSE 93 MG/DL (70-104); TOTAL PROTEIN 5.4 G/DL (6.4-8.2); eGFR > 90 ML/MIN
[2021-07-15 07:40] LABS: ANISOCYTOSIS 1+; LARGE PLATELETS FEW; PLATELET ESTIMATE NORMAL
[2021-07-15] MEDS: K and/or MAG REPLACEMENT MC SCH ×2 (08:00→20:00)
[2021-07-15] MEDS: ondansetron/PF 4mg/2ml inj IV PRN (09:25)
[2021-07-15] MEDS: morphine 2 MG/ML inj. syringe IV PRN (09:26)
[2021-07-15] MEDS ORDERED: PANT40TA54 PO ×2 (09:52)
[2021-07-15] MEDS ORDERED: PANT-47 PO (09:52)
[2021-07-15] MEDS ORDERED: PRED20TA PO (09:52)
[2021-07-15] MEDS ORDERED: MULT-25 PO (09:52)
[2021-07-15 11:00] VITALS: BP 104/66
--- NOTE | 2021-07-15 14:53 | NUR ---
PAGER ID: [phone] MESSAGE: Emery Alicea 345A- Pt cannot have his MRI today, they(MRI)suggested we refer him to aide as an outpt for the multiphase MRI suggested.Pt does not have a PCP to be refer.He would like to have referral to [facility] as well. thank you.Izabella Mejía [phone]
--- NOTE | 2021-07-15 15:20 | NUR ---
Pt was going to be DC, Dr Vásquez decided to cancel DC because pt cannot get his Multiphase MRI, has no PCP, moved here from [facility]. pt still taking meds for nausea, and very jaundice. Mom very upset over DC. pt Wants to be refer to [facility]. Yumiko CHRISTENSEN is trying to find him placement. NOC nurse and charge aware.
[2021-07-15] MEDS: diphenhydrAMINE 25mg capsule PO PRN ×2 (15:34→22:42)
[2021-07-15 18:00] VITALS: BP 132/92
--- NOTE | 2021-07-15 18:18 | NUR ---
Problems reprioritized. Patient report given, questions answered & plan of care reviewed with Marilyn SMITH.
[2021-07-15] MEDS: ondansetron 4mg rapidly disintigrating tab PO PRN (23:59)
[2021-07-16] VITALS: BP 107/75
--- NOTE | 2021-07-16 03:11 | NUR ---
Patient refusing blood sugar check
--- NOTE | 2021-07-16 06:29 | NUR ---
Problems reprioritized. Patient report given, questions answered & plan of care reviewed with SARAH Burroughs.
[2021-07-16 06:30] LABS: BASOPHILS % (AUTO) 0.2 % (0-1); EOSINOPHILS # (AUTO) 0.1 X10'3 (0-0.9); EOSINOPHILS % (AUTO) 0.8 % (0-6); HEMATOCRIT 37.8 % (42.0-52.0); LYMPHOCYTES # (AUTO) 2.2 X10'3 (1.1-4.8); LYMPHOCYTES % (AUTO) 22.6 % (21-51); MEAN CORPUSCULAR HEMOGLOBIN 35.7 PG (27.0-31.0); MEAN CORPUSCULAR HGB CONC 34.3 g/dL (33.0-36.5); MEAN CORPUSCULAR VOLUME 104.2 FL (78-98); MEAN PLATELET VOLUME 9.2 FL (7.4-10.4); MONOCYTES # (AUTO) 1.1 X10'3 (0-0.9); MONOCYTES % (AUTO) 11.4 % (2-12); NEUTROPHILS # (AUTO) 6.4 X10'3 (1.8-7.7); PLATELET COUNT 162 X10'3 (140-440); RED BLOOD COUNT 3.63 X10'6 (4.70-6.10); WHITE BLOOD COUNT 9.8 X10'3 (4.5-11.0)
[2021-07-16 06:43] LABS: PARTIAL THROMBOPLASTIN TIME 45 SECONDS (22-32)
[2021-07-16 06:44] LABS: ALANINE AMINOTRANSFERASE 61 U/L (12-78); ALBUMIN 2.1 G/DL (3.4-5.0); ALKALINE PHOSPHATASE 161 IU/L (46-116); ANION GAP 6 (8-16); BLOOD UREA NITROGEN 6 MG/DL (7-18); CALCIUM 7.3 MG/DL (8.5-10.1); CHLORIDE 97 MMOL/L (99-107); SODIUM 128 MMOL/L (135-145); TOTAL CARBON DIOXIDE 25.4 MMOL/L (24-32)
--- NOTE | 2021-07-16 06:44 | NUR ---
Patient in room [facility]A. I have received report from SARAH BLEVINS and had the opportunity to ask questions and assume patient care.
[2021-07-16 06:46] LABS: ALBUMIN/GLOBULIN RATIO 0.6 (1.1-1.5); ASPARTATE AMINO TRANSFERASE 98 U/L (10-37); BUN/CREATININE RATIO 10.2 (5.4-32.0); CREATININE 0.59 MG/DL (0.60-1.10); GLUCOSE 96 MG/DL (70-104); POTASSIUM 3.6 MMOL/L (3.5-5.1); TOTAL PROTEIN 5.5 G/DL (6.4-8.2); eGFR > 90 ML/MIN
[2021-07-16 07:00] VITALS: BP 105/55
[2021-07-16] MEDS: morphine 2 MG/ML inj. syringe IV PRN ×2 (07:35→12:35)
[2021-07-16] MEDS: nicotine 21mg patch - 24 hr TD SCH (07:43)
[2021-07-16] MEDS: dextrose 5%-1/2 normal saline 1,000 ML IV SCH ×2 (07:48→22:52)
[2021-07-16] MEDS: K and/or MAG REPLACEMENT MC SCH ×2 (08:00→20:00)
[2021-07-16] MEDS: thiamine 100mg tablet PO SCH (08:00)
[2021-07-16] MEDS: folic acid 1mg tablet PO SCH (08:00)
[2021-07-16] MEDS: multivitamins, therapeutics tablet PO SCH (08:00)
--- NOTE | 2021-07-16 09:15 | NUR ---
Reassessment: Patient's PO intake slightly fluctuates however appears to have significantly improved since last RD assessment (07/13) as pt averaging 75% PO intake of meals. ONS still not verified in EMR though currently not warranted given improvement in PO intake. LBM 07/15. No nutrition intervention implemented at this time. Will continue to follow. Recs: 1. Continue Regular diet 2. Continue routine Thiamine, Folic acid, and MVI for EtOH hx 3. Bowel care per rx 4. Weekly scaled wts Addendum: 07/16/21 at [address] Amended: Links added.
[2021-07-16] MEDS: predniSONE 20 mg tablet PO SCH (10:19)
[2021-07-16] MEDS: docusate sod 100mg capsule PO SCH ×2 (10:19→19:44)
[2021-07-16] MEDS: pantoprazole 40mg Tablet.DR PO SCH (10:19)
[2021-07-16 11:00] VITALS: BP 121/73
[2021-07-16] MEDS ORDERED: GADOTERATE MEGLUMINE 7.5 MMOL/15 ML VIAL IV ONE (13:01)
[2021-07-16 19:00] VITALS: BP 112/73
--- NOTE | 2021-07-16 19:12 | NUR ---
Patient in room [facility]. I have received report from SARAH Burroughs and had the opportunity to ask questions and assume patient care. Pt sitting up in bed, no complaints. denies pain at this time. Addendum: 07/16/21 at 6 by Yash Bowen RN Amended: Links added.
--- NOTE | 2021-07-16 19:15 | NUR ---
Problems reprioritized. Patient report given, questions answered & plan of care reviewed with SARAH LUQUE.
[2021-07-16] MEDS: diphenhydrAMINE 25mg capsule PO PRN (19:49)
--- NOTE | 2021-07-16 19:49 | NUR ---
Lungs clear, no pain at this time, occ abd cramping, jaundice, abd distended ascitis. bm today. Addendum: 07/16/21 at 1950 by Yash Bowen RN Amended: Links added.
[2021-07-16] MEDS ORDERED: furosemide 40mg/4ml inj IV ONE (21:30)
[2021-07-17 00:30] VITALS: BP 112/62
[2021-07-17] MEDS: diphenhydrAMINE 25mg capsule PO PRN (01:45)
[2021-07-17] MEDS: dextrose 5%-1/2 normal saline 1,000 ML IV SCH (05:00)
[2021-07-17 06:07] LABS: PARTIAL THROMBOPLASTIN TIME 40 SECONDS (22-32)
[2021-07-17 06:09] LABS: ALANINE AMINOTRANSFERASE 75 U/L (12-78); ALBUMIN 2.2 G/DL (3.4-5.0); ALKALINE PHOSPHATASE 184 IU/L (46-116); ANION GAP 6 (8-16); BILIRUBIN,TOTAL 19.1 MG/DL (0.1-1.0); BLOOD UREA NITROGEN 6 MG/DL (7-18); CALCIUM 7.4 MG/DL (8.5-10.1); CHLORIDE 97 MMOL/L (99-107); POTASSIUM 3.6 MMOL/L (3.5-5.1); SODIUM 131 MMOL/L (135-145); TOTAL CARBON DIOXIDE 27.9 MMOL/L (24-32)
[2021-07-17 06:13] LABS: BASOPHILS # (AUTO) 0.1 X10'3 (0-0.2); BASOPHILS % (AUTO) 1.4 % (0-1); EOSINOPHILS % (AUTO) 0.1 % (0-6); HEMATOCRIT 38.6 % (42.0-52.0); HEMOGLOBIN 13.5 g/dl (14.0-17.9); LYMPHOCYTES # (AUTO) 0.6 X10'3 (1.1-4.8); LYMPHOCYTES % (AUTO) 5.4 % (21-51); MEAN CORPUSCULAR HEMOGLOBIN 35.8 PG (27.0-31.0); MEAN CORPUSCULAR HGB CONC 35.1 g/dL (33.0-36.5); MEAN CORPUSCULAR VOLUME 101.9 FL (78-98); MONOCYTES # (AUTO) 1.2 X10'3 (0-0.9); MONOCYTES % (AUTO) 10.9 % (2-12); NEUTROPHILS # (AUTO) 8.8 X10'3 (1.8-7.7); NEUTROPHILS % (AUTO) 82.2 % (42-75); PLATELET COUNT 157 X10'3 (140-440); RED BLOOD COUNT 3.79 X10'6 (4.70-6.10); RED CELL DISTRIBUTION WIDTH 17.8 % (11.5-14.5); WHITE BLOOD COUNT 10.6 X10'3 (4.5-11.0)
--- NOTE | 2021-07-17 06:18 | NUR ---
Patient in room [facility]. I have received report from Bindu SMITH and had the opportunity to ask questions and assume patient care.
--- NOTE | 2021-07-17 06:36 | NUR ---
Problems reprioritized. Patient report given, questions answered & plan of care reviewed with SARAH Duque. Addendum: 07/17/21 at 0636 by Yash Bowen RN Amended: Links added.
[2021-07-17 06:50] LABS: ALBUMIN/GLOBULIN RATIO 0.6 (1.1-1.5); ASPARTATE AMINO TRANSFERASE 112 U/L (10-37); GLUCOSE 98 MG/DL (70-104); eGFR > 90 ML/MIN
[2021-07-17 07:00] VITALS: BP 103/66
--- NOTE | 2021-07-17 07:00 | NUR ---
patient appears stable. Tolerated 100% of meal. no report of pain will continue to monitor
[2021-07-17] MEDS: multivitamins, therapeutics tablet PO SCH (08:20)
[2021-07-17] MEDS: nicotine 21mg patch - 24 hr TD SCH (08:21)
[2021-07-17] MEDS: docusate sod 100mg capsule PO SCH (08:21)
[2021-07-17] MEDS: folic acid 1mg tablet PO SCH (08:21)
[2021-07-17] MEDS: pantoprazole 40mg Tablet.DR PO SCH (08:21)
[2021-07-17] MEDS: predniSONE 20 mg tablet PO SCH (08:22)
[2021-07-17] MEDS: thiamine 100mg tablet PO SCH (08:22)
--- NOTE | 2021-07-17 11:00 | NUR ---
patient seen by manager social services and by Dr Vásquez is for discharge. All Dc instructions discussed with patient. meds escript to [facility] on [address]. PIV removed intact. patient DC home with parent in stable condition via private car.
[2021-07-17] MEDS ORDERED: FURO-150 PO (11:01)
== END 2021-07-17 11:29 | disposition home or self-care (01) | DRG 433 ==
LOC: ER 16:56 → ED HOLD 21:06 → SUR 3N 07-09 07:55
PROVIDERS: ADMIT Family Medicine; ATTEND Family Medicine
PROC: BW211ZZ Computerized Tomography (CT Scan) of Abdomen and Pelvis using Low Osmolar Contrast (ICD-10-PCS; principal; 2021-07-08)
PROC: BW211ZZ Computerized Tomography (CT Scan) of Abdomen and Pelvis using Low Osmolar Contrast (ICD-10-PCS; 2021-07-12)
DX: K70.11 Alcoholic hepatitis with ascites (principal); D68.9 Coagulation defect, unspecified; K92.0 Hematemesis; E87.1 Hypo-osmolality and hyponatremia; D69.6 Thrombocytopenia, unspecified; E86.1 Hypovolemia; E87.6 Hypokalemia; Z20.822 Contact with and (suspected) exposure to COVID-19; F17.210 Nicotine dependence, cigarettes, uncomplicated; D63.8 Anemia in other chronic diseases classified elsewhere; F10.129 Alcohol abuse with intoxication, unspecified; I10 Essential (primary) hypertension; K59.00 Constipation, unspecified; K76.0 Fatty (change of) liver, not elsewhere classified; K21.9 Gastro-esophageal reflux disease without esophagitis; R82.4 Acetonuria; Z56.0 Unemployment, unspecified; Z71.41 Alcohol abuse counseling and surveillance of alcoholic
CPT/HCPCS: 36415; 71045; 74177; 74183; 76700; 80053; 80061; 80305; 80320; 81001; 82103; 82272; 82550; 82948; 82977; 83036; 83615; 83690; 83735; 83880; 84100; 84132; 84300; 84443; 85007; 85008; 85025; 85610; 85651; 85730; 86140; 87081; 87635; 97161; 99285; A9575; G0378; J0780; J1940; J2060; J2270; J2405; J3411; J3430; J3480; J3490; J7512; Q0163; Q9967

== ENCOUNTER 2021-08-13 21:33 | Emergency (ER) | payer OTHER ==
[~2021-08-13] VITALS: Ht 175.3 cm; Wt 81.8 kg
[~2021-08-13 21:33] MED LIST: FURO-150 PO; MULT-25 PO; NO HOME MEDS; PANT-47 PO; PRED20TA PO
[2021-08-13 22:23] LABS: BASOPHILS # (AUTO) 0.1 X10'3 (0-0.2); BASOPHILS % (AUTO) 0.5 % (0-1); EOSINOPHILS # (AUTO) 0.1 X10'3 (0-0.9); EOSINOPHILS % (AUTO) 1.1 % (0-6); HEMATOCRIT 44.1 % (42.0-52.0); LYMPHOCYTES # (AUTO) 2.1 X10'3 (1.1-4.8); LYMPHOCYTES % (AUTO) 17.7 % (21-51); MEAN CORPUSCULAR HEMOGLOBIN 35.1 PG (27.0-31.0); MEAN CORPUSCULAR VOLUME 103.4 FL (78-98); MEAN PLATELET VOLUME 9.1 FL (7.4-10.4); MONOCYTES # (AUTO) 1.5 X10'3 (0-0.9); MONOCYTES % (AUTO) 12.2 % (2-12); NEUTROPHILS # (AUTO) 8.3 X10'3 (1.8-7.7); NEUTROPHILS % (AUTO) 68.5 % (42-75); PLATELET COUNT 151 X10'3 (140-440); RED BLOOD COUNT 4.27 X10'6 (4.70-6.10); RED CELL DISTRIBUTION WIDTH 14.8 % (11.5-14.5); WHITE BLOOD COUNT 12.1 X10'3 (4.5-11.0)
[2021-08-13 22:36] LABS: ALANINE AMINOTRANSFERASE 79 U/L (12-78); ALBUMIN 3.5 G/DL (3.4-5.0); ALKALINE PHOSPHATASE 112 IU/L (46-116); AMYLASE 57 U/L (25-115); ANION GAP 8 (8-16); ASPARTATE AMINO TRANSFERASE 64 U/L (10-37); BLOOD UREA NITROGEN 6 MG/DL (7-18); BUN/CREATININE RATIO 8.2 (5.4-32.0); CALCIUM 8.9 MG/DL (8.5-10.1); CHLORIDE 102 MMOL/L (99-107); CREATININE 0.73 MG/DL (0.60-1.10); GLUCOSE 103 MG/DL (70-104); LIPASE 164 U/L (73-393); POTASSIUM 3.8 MMOL/L (3.5-5.1); SODIUM 134 MMOL/L (135-145); TOTAL CARBON DIOXIDE 24.2 MMOL/L (24-32); eGFR > 90 ML/MIN
[2021-08-13 22:44] LABS: ALBUMIN/GLOBULIN RATIO 0.8 (1.1-1.5); TOTAL PROTEIN 7.7 G/DL (6.4-8.2)
[2021-08-13 23:53] LABS: UA COLLECTION TYPE CLN CATCH MIDSTREAM
[2021-08-13 23:54] LABS: CLARITY,URINE CLEAR (Clear); COLOR,URINE AMBER (Yellow); GLUCOSE, URINE NEGATIVE (Neg); KETONES,URINE NEGATIVE (Neg); PROTEIN,URINE TRACE mg/dl (Neg)
[2021-08-13 23:55] LABS: NITRITES, URINE NEGATIVE (Neg); OCCULT BLOOD,URINE NEGATIVE (Neg)
[2021-08-13 23:57] LABS: LEUKOCYTE ESTERASE ,URINE NEGATIVE (Neg); UROBILINOGEN,URINE 0.2 E.U/dL (0.2-1.0)
[2021-08-14 00:05] LABS: BACTERIA,URINE NONE SEEN /HPF (Neg); MUCUS STRANDS FEW /LPF (Neg); RBC,URINE NONE SEEN /HPF (0-2); SQUAMOUS EPITHELIAL CELL,UR NONE SEEN /LPF (FEW); WBC,URINE 0-4 /HPF (0-4)
[2021-08-14 01:14] VITALS: BP 105/69
== END 2021-08-14 01:12 | disposition home or self-care (01) ==
LOC: ER 21:34
DX: R10.84 Generalized abdominal pain (principal); R11.0 Nausea; K21.9 Gastro-esophageal reflux disease without esophagitis; Z72.89 Other problems related to lifestyle; Z56.0 Unemployment, unspecified; Z79.899 Other long term (current) drug therapy
CPT/HCPCS: 36415; 74176; 80053; 81001; 82150; 83690; 85025; 99284